=== PATIENT | male | born 1985 | race Caucasian/White ===

== ENCOUNTER 2017-07-13 20:51 | Emergency (ER) | payer OTHER ==
[~2017-07-13] VITALS: Ht 172.7 cm; Wt 102.1 kg
--- NOTE | 2017-07-13 20:54 | PHYS DOC ---
Adult General Chief Complaint Chief Complaint: right eye pain [facility] HPI Patient is a 32 year old male who presents with right eye pain. He was cutting some wood at 3:00 today felt something in his eye. He went to [employer] [employer] and tried to rinse it out with a [id number] kit. He states he's having constant pain in that eye. He states the light makes it worse. He denied any issues prior to 3:00 today. He is not allergic to any medicines. Review of Systems Review of Systems Constitutional: Denies fever or chills [] Eyes: Denies change in visual acuity, redness, or eye pain [] HENT: Denies nasal congestion or sore throat [] Respiratory: Denies cough or shortness of breath [] Cardiovascular: No additional information not addressed in HPI [] GI: Denies abdominal pain, nausea, vomiting, bloody stools or diarrhea [] : Denies dysuria or hematuria [] Musculoskeletal: Denies back pain or joint pain [] Integument: Denies rash or skin lesions [] Neurologic: Denies headache, focal weakness or sensory changes [] Endocrine: Denies polyuria or polydipsia [] Physical Exam Physical Exam Constitutional: Well developed, well nourished, no acute distress, non-toxic appearance. [] HENT: Normocephalic, atraumatic, bilateral external ears normal, oropharynx moist, no oral exudates, nose normal. [] Eyes: PERRLA, EOMI, conjunctiva normal, no discharge. flurocein was placed without any uptake staining noted. No foreign bodies appreciated, Zheng-Pen read out as 12, 18, 22 up take stainingNeck: Normal range of motion, no tenderness, supple, no stridor. [] Cardiovascular:Heart rate regular rhythm, no murmur [] Lungs & Thorax: Bilateral breath sounds clear to auscultation [] Abdomen: Bowel sounds normal, soft, no tenderness, no masses, no pulsatile masses. [] Skin: Warm, dry, no erythema, no rash. [] Back: No tenderness, no CVA tenderness. [] Extremities: No tenderness, no cyanosis, no clubbing, ROM intact, no edema. [] Neurologic: Alert and oriented X 3, normal motor function, normal sensory function, no focal deficits noted. [] Psychologic: Affect normal, judgement normal, mood normal. [] EKG EKG [] Radiology/Procedures Radiology/Procedures [] Impressions: eye pain Course & Med Decision Making Course & Med Decision Making Pertinent Labs and Imaging studies reviewed. (See chart for details) The eye was flushed out without any change in symptoms. His Zheng-Pen readings are not elevated. Visual acuities were checked. Patient is being discharged with [place] and erythromycin ointment a follow-up with ophthalmology morning. Dragon Disclaimer Dragon Disclaimer This chart was dictated in whole or in part using Voice Recognition software in a busy, high-work load, and often noisy Emergency Department environment. It may contain unintended and wholly unrecognized errors or omissions. Departure Departure: Impression: Primary Impression: Pain, eye, right Referrals: PCP,SEBASTIEN (PCP) GAGE BLOCK DO Patient Instructions: Eye Injury-Brief Additional Instructions: I do not see any foreign bodies in your eye. I do not see any scratches on your cornea. Your visual acuities were within normal limits considering you are suppose to wear glasses and you dont have them with you. You will need follow- up with an eye doctor tomorrow. Please call and I physician and schedule appointment. You can follow-up with Dr. Block, please call his office and schedule appointment with him tomorrow. You will need to use erythromycin eye ointment apply half an inch ribbon every 3-4 hours while awake. Return ER if you have severe pain, headache, fevers or other concerns. Scripts Hydrocodone Bit/Acetaminophen (NORCO 5-325 TABLET) 1 Each Tablet 1-2 TAB PO PRN Q6HRS Y for PAIN, #10 TAB 0 Refills Prov: RICHA GOETZ MD 07/13/17 RICHA GOETZ MD Jul 13, 2017 20:54
[2017-07-13 21:00] VITALS: BP 133/77
[2017-07-13] MEDS ORDERED: FLUORESCEIN 1MG EYE STRIP. OD ONE (21:30)
[2017-07-13] MEDS ORDERED: TETRACAINE 0.5% OPHTH SOLUTION 4ML BOTTLE. OD ONE (21:30)
[2017-07-13] MEDS ORDERED: HYDR-971 PO (22:24)
[2017-07-13] MEDS ORDERED: HYDROcodone/APAP 5/325MG 1 TAB TABLET PO ONE (22:45)
[2017-07-13] MEDS ORDERED: ERYTHROMYCIN 0.5% OPHTH OINTMENT 1GM TUBE. OD ONE (23:00)
== END 2017-07-13 22:46 | disposition home or self-care (01) ==
LOC: ER 20:51
DX: H57.11 Ocular pain, right eye (principal)
CPT/HCPCS: 99283